=== PATIENT | male | born 1990 | race African-American/Black ===

== ENCOUNTER 2025-01-27 07:17 | Emergency (ER) | payer SELFPAY ==
[~2025-01-27] VITALS: Ht 185.4 cm; Wt 136.1 kg
[2025-01-27 07:17] VITALS: BP 145/75; PULSE 91; RESP 18; TEMP 99.3; O2SAT 98
[2025-01-27] MEDS ORDERED: TORADOL ONE (07:32)
[2025-01-27] MEDS ORDERED: CLEOCIN ONE (07:32)
[2025-01-27] MEDS ORDERED: ETOD-80 PO (07:36)
[2025-01-27] MEDS ORDERED: CLIN-109 PO (07:36)
[2025-01-27] MEDS: CLEOCIN PO STA (07:38)
[2025-01-27] MEDS: TORADOL IM STA (07:39)
[2025-01-27 07:44] VITALS: BP 145/75; PULSE 75; RESP 18; TEMP 99.3; O2SAT 98
== END 2025-01-27 07:52 | disposition home or self-care (01) ==
LOC: ER 07:17
DX: K04.7 Periapical abscess without sinus (principal); K02.9 Dental caries, unspecified
CPT/HCPCS: 99283; 96372; J1885; J8499